=== PATIENT | male | born 1995 | race Caucasian/White ===

== ENCOUNTER 2024-03-10 14:37 | Emergency (ER) | payer BC, SELFPAY ==
[2024-03-10 15:40] VITALS: BP 143/90; PULSE 60; RESP 18; TEMP 36.9; O2SAT 99; BMI 28.1
--- NOTE | 2024-03-10 15:47 | XR_ITS ---
Examination: Ribs, left, with PA chest, 3 views Technique: Chest PA, RIBS AP, RPO, LPO, AP coned lower ribs 5 views Exam date and time: March 10, 2024 1549 hrs. Indications: Onset left-sided rib pain today Findings: Normal heart size Subsegmental atelectasis and/or pneumonia left base No pneumothorax Ribs appear intact Impression: Atelectasis and/or pneumonia left base, clinical correlation advised
--- NOTE | 2024-03-10 15:48 | EDNOTE_ITS ---
ED General RME/HPI General Chief complaint: General Adult/Misc Complain Stated complaint: LEFT RIB PAIN Time Seen by Provider: 03/10/24 15:10 Arrival date/time: 03/10/24 14:37 RME / HPI RME / HPI narrative: 29-year-old male patient with no significant medical history, came in for evaluation regarding left rib cage pain. Patient was leaning on a rail while fixing the crib resulting in the pain to the rib cage, described as dull ache, severity 9/10 worse with coughing and deep breathing. Denies any fever denies any shortness of breath denies any other complaints no medication was taken prior to arrival. Related Data Previous Rx's ?Medication ?Instructions ?Recorded amoxicillin 875 mg-potassium 1 tab PO BID #14 tabs 03/10/24 clavulanate 125 mg tablet doxycycline monohydrate 100 mg 100 mg PO BID #14 caps 03/10/24 capsule Allergies Allergy/AdvReac Type Severity Reaction Status Date / Time No Known Allergies Allergy Verified 03/10/24 14:39 Review of Systems Review of Systems Narrative Review of Systems: Review of system reviewed and within normal limits except mentioned in HPI ED Exam Narrative Physical exam: VITAL SIGNS: Reviewed. GENERAL APPEARANCE: Alert and interactive, follows commands, no acute distress, HEAD AND FACE: Non-traumatic. ENT: PERRL, pink conjunctivitis, eyelid no trauma, Mucous membrane moist. NECK: Supple, nontender, no nuchal rigidity. CHEST: Left rib cage tenderness tenderness, no crepitus, no paradoxical movement, no retractions. LUNGS: Clear, well ventilated, symmetric, no rales, no wheezing, no ronchi, no stridor, good breath sounds bilaterally. HEART: Regular rate, regular rhythm, no murmur, no gallops. ABDOMEN: Soft, positive bowel sounds, nondistended, no guarding, nontender, no r ebound, no masses, RECTAL: Deferred. GENITAL: Deferred. NEUROLOGICAL: Gross motor function intact sensory function intact, Appropriate for age. MUSCULOSKELETAL: low back nontender, full range of motion. EXTREMITIES: Nontender, full range of motion. SKIN: Color pink, dry, no rash, no lacerations, no abrasions, no contusions. LYMPHATICS: Deferred. Course Quality Measures none Orders Category Date Time Status XR ribs LT min 3V w CXR1V Stat Exams 11/29/24 15:47 Completed Ibuprofen Tab [Motrin Tab] Med 03/10/24 15:47 Discontinued 800 mg PO X1 ONE Vital Signs Vital signs: Vital Signs Temperature 98.5 F 03/10/24 15:40 Pulse Rate 60 03/10/24 15:40 Respiratory Rate 18 03/10/24 15:40 Blood Pressure 143/90 H 03/10/24 15:40 Pulse Oximetry (%) 99 03/10/24 15:40 Oxygen Delivery Method Room Air 03/10/24 15:40 MDM Patient data External records reviewed:: None Clinical information provided by:: none Social determinants that could affect healthcare access:: none Patient has the following chronic illnesses:: None How is presenting disease/condition affected by chronic disease/condition?: no chronic disease Evaluation data The following diagnostics were reviewed and interpreted by me:: radiology exam(s) Lab and/or radiology exams considered but not ordered:: None Interpretation Summary: Chest x-ray showed Atelectasis and/or pneumonia left base, clinical correlation advised Medications Medications considered but not ordered:: None Medication administrations:: Medication Administration History Discontinued Medications Ibuprofen (Ibuprofen Tab 400 Mg Tablet) 800 mg PO X1 ONE Stop: 03/10/24 15:48 Last Admin: 03/10/24 16:25 Dose: 800 mg Documented By: Ibuprofen Consultations Consultation(s) initiated? (list below): No Diagnosis Differential Diagnosis ED Complaint MDM: Rib pain, chest pain, pneumonia Most likely diagnosis given after review of the tests above:: Pneumonia Admission Indicated Admission indicated?: not indicated Explain why admission is indicated or not indicated:: Stable Admission Request Was there a request for admission?: No Disposition Plan Disposition Plan: Discharge Discharge Attestation Discharge Attestation: The patient and all family members were given an opportunity to ask questions and understood the discharge instructions. Discharge instructions specifically effects, indications for sooner follow up or return to the emergency department, and the expected course of current diagnosis. Patient condition: Stable Medical Decision Making MDM Narrative MDM Narrative: 29-year-old male patient with no significant medical history, came in for evaluation regarding left rib cage pain. Patient was leaning on a rail while fixing the crib resulting in the pain to the rib cage, described as dull ache, severity 9/10 worse with coughing and deep breathing. Denies any fever denies any shortness of breath denies any other complaints no medication was taken prior to arrival. Chest x-ray showed pneumonia otherwise unremarkable. Currently patient is satting 99% on room air patient will be discharged home on Augmentin and doxycycline Differential Diagnosis Differential Diagnosis: Rib pain, chest pain, pneumonia Discharge Plan Plan Patient Disposition: HOME (Self Care) Disposition Comment: stable Prescriptions/Referrals Prescriptions/Med Rec: New amoxicillin-pot clavulanate 875-125 mg tablet 1 tab PO BID Qty: 14 0RF doxycycline monohydrate 100 mg capsule 100 mg PO BID Qty: 14 0RF Problem List Clinical Impression: Pneumonia Patient/Caregiver Discharge Instructions Discharge Activity: activity as tolerated Education Materials: What Is Pneumonia? Additional Instructions: Thank you for the opportunity for serving you today. You are stable for discharged . You are advised to: Follow-up with your PCP in 1 to 2 days Return to ED for worsening of symptoms Increase oral fluids Take medication as prescribed Print Language: Lithuanian Stand Alone Forms: Nicol Award Info., Patient Portal Info Letter ILIANA/IRIS Supervising Physician ILIANA/IRIS Supervising Physician: MD Tyler
[2024-03-10] MEDS: IBUPROFEN TAB 400 MG TABLET 800 MG PO (16:25)
== END 2024-03-10 17:14 | disposition home or self-care (01) ==
PROVIDERS: Emergency Provider Emergency Medicine
DX: J18.9 Pneumonia, unspecified organism (principal)
CPT/HCPCS: 71101; 99283; A9270